=== PATIENT | female | born 1955 | race Caucasian/White ===

== ENCOUNTER 2024-05-31 14:43 | Inpatient (IN) | payer OTHER ==
[~2024-05-31] VITALS: Ht 170.2 cm; Wt 88.4 kg
[2024-05-31 15:38] LABS: Urine Bacteria None Seen /hpf (None Seen)
[2024-05-31 15:45] LABS: Hematocrit 45.6 % (36.0-46.0); Hemoglobin 15.7 g/dL (12.2-16.2); Mean Corpuscular Hemoglobin 29.9 pg (28.0-32.0); Mean Corpuscular Hgb Conc. 34.5 g/dL (32.0-36.0); Mean Corpuscular Volume 86.5 fL (80.0-100.0); Platelet Count (auto) 330 10^3/uL (140-450); Red Blood Cells 5.27 10^6/uL (4.0-5.20); Red Cell Distribution Width 14.9 % (11.8-14.3); White Blood Cell 10.5 10^3/uL (4.4-10.8)
[2024-05-31 15:48] LABS: Basophils % (manual) 0 (0.0-2.0); Blast Cells 0; Metamyelocytes % 0; Myelocytes % 0; Promyelocytes % 0; Reactive Lymphocytes 0
[2024-05-31 15:52] LABS: Chloride 106 mmol/L (98-107); Potassium 4.1 mmol/L (3.5-5.1); Sodium 138 mmol/L (136-145)
[2024-05-31 15:53] LABS: Anion Gap 12 (5-15); Carbon Dioxide 20 mmol/L (20-30)
[2024-05-31 15:54] LABS: Calcium 10.1 mg/dL (8.7-10.4)
[2024-05-31 15:55] LABS: Urine Blood Negative /uL (Negative); Urine Clarity Clear (Clear); Urine Color Yellow (Yellow); Urine Mucus FEW (None Seen); Urine Protein, UAD TRACE (Negative); Urine Specific Gravity 1.024 (1.001-1.035); Urine Urobilinogen Normal (Negative); Urine WBC 3 /hpf (0 - 5)
[2024-05-31 15:58] LABS: BUN/Creatinine Ratio 15.1 (10.0-20.0); Blood Urea Nitrogen 11 mg/dL (9-23); Glucose 103 mg/dL (74-106)
[2024-05-31 16:27] LABS: Monocytes % (manual) 8 (0-12)
[2024-05-31 16:28] LABS: Band Neutrophils % (manual) 5; Eosinophils % (manual) 17 (0-7); Lymphocytes % (manual) 25 (10.0-50.0)
[2024-05-31 16:30] LABS: Anisocytosis Slight; Platelet Estimate Adequate
[2024-05-31] MEDS ORDERED: ACETAMINOPHEN 325 MG TAB PO PRN (20:45)
[2024-05-31 23:00] VITALS: PULSE 65; RESP 17; O2SAT 99
[2024-06-01] MEDS: SODIUM CHLORIDE 0.9% 1,000 ML IV ONE (00:09)
[2024-06-01] MEDS: SODIUM CHLORIDE 0.9% 1,000 ML IV SCH (02:05)
[2024-06-01] MEDS: DIPHENOXYLATE W/ATROPINE 2.5 MG TAB PO ONE (02:05)
[2024-06-01 06:09] LABS: Anion Gap 8 (5-15); Carbon Dioxide 24 mmol/L (20-30); Chloride 107 mmol/L (98-107); Potassium 3.9 mmol/L (3.5-5.1); Sodium 139 mmol/L (136-145)
[2024-06-01 06:10] LABS: Calcium 9.5 mg/dL (8.7-10.4)
[2024-06-01 06:15] LABS: BUN/Creatinine Ratio 24.6 (10.0-20.0); Blood Urea Nitrogen 15 mg/dL (9-23); Glucose 102 mg/dL (74-106)
[2024-06-01 08:00] VITALS: TEMP 97.5
[2024-06-01 09:08] VITALS: PULSE 68; RESP 16; O2SAT 96
[2024-06-01] MEDS: ENOXAPARIN SOD 40 MG/0.4 ML SYRINGE SC SCH (09:26)
[2024-06-01 14:00] VITALS: BP 121/74; PULSE 68; RESP 16; O2SAT 96
== END 2024-06-01 14:51 | disposition home or self-care (01) | DRG 392 ==
LOC: ER 14:43 → OVERFLOW 21:14
PROVIDERS: ADMIT Nurse Practitioner; ATTEND Internal Medicine Geriatric Medicine
DX: K52.9 Noninfective gastroenteritis and colitis, unspecified (principal); Z91.030 Bee allergy status; Z90.710 Acquired absence of both cervix and uterus; Z90.49 Acquired absence of other specified parts of digestive tract
CPT/HCPCS: 36415; 80048; 81001; 85007; 85027; 96360; 96361; 96372; G0378